=== PATIENT | female | born 1945 | race Caucasian/White ===

== ENCOUNTER 2018-10-18 19:43 | Observation (INO) ==
--- NOTE | 2018-10-18 20:26 | Emergency Department Note ---
Abdominal Pain HPI - General Chief Complaint: Abdominal Pain Stated Complaint: abdominal pain Time Seen by Provider: 10/18/18 19:57 Source: patient, family Mode of arrival: ambulatory Limitations: no limitations - History of Present Illness HPI Narrative: 73-year-old female with a history of right upper quadrant/right flank pain x6- week. Apparently she was seen 5 days ago in urgent care. At that time they did a ultrasound of the kidneys which was read as essentially normal except for a couple small nonobstructing kidney stones. CT scan was ordered which was done today. On that CT scan saw severe cholecystitis by radiologist Dr. Luna; so I called the patient back in for reevaluation-the patient had not had recent labs. At this time she is not having pain or nausea but she reports intermittent colicky pain in the right upper quadrant that wakes her up at night and worse with certain kinds of foods. - Related Data Home Medications Medication Instructions Recorded Confirmed estradiol 0.5 mg tablet 0.5 mg PO QDAY 10/04/18 10/13/18 Previous Rx's Medication Instructions Recorded cholecalciferol (vitamin D3) 2,000 2,000 unit PO QDAY #1 cap 05/21/15 unit capsule hydrALAZINE [Apresoline] 25 mg PO TID PRN #10 tab 08/25/18 Blood pressure machine #1 ea 09/11/18 losartan 100 See Rx Instructions .ROUTE 09/20/18 mg-hydrochlorothiazide 25 mg tablet .COMPLEX #90 tablet atenolol 50 mg tablet 50 mg PO BID #180 tab 09/27/18 lovastatin 20 mg tablet 20 mg PO QHS #90 tab 09/27/18 Allergies Allergy/AdvReac Type Severity Reaction Status Date / Time ORALIA Inhibitors AdvReac Cough Verified 10/13/18 13:20 estradiol [From Estraderm] AdvReac Other Verified 10/13/18 13:20 Review of Systems All systems ED: reviewed and negative except as stated. Abdominal Pain PMH - Past Medical History Attestation: Yes: The following information was validated with the patient. [facility] Narrative: Family History (Last Reviewed 10/13/18 @ 13:31 by Kimmie Augustine PA-C) Father Cerebrovascular accident (CVA), Onset Age: 49 Unknown Essential hypertension Medical History (Last Reviewed 10/13/18 @ 13:31 by Kimmie Augustine PA-C) Hypothyroidism (Chronic) Encounter for Health Maintenance Examination in Adult (Chronic) H/O: hysterectomy (Chronic) Vitamin D deficiency (Chronic) Tobacco abuse (Chronic 04/22/14) Hypertension, essential (Chronic) Hypercholesterolemia (Chronic) Hormone replacement therapy (HRT) (Chronic 04/01/11) Glucose intolerance (impaired glucose tolerance) (Chronic 04/16/13) Fibrocystic breast disease (Chronic) Personal history of colonic polyps (Chronic 12/30/10) Abnormal glucose (Chronic 04/01/11) Past Surgical History (Last Reviewed 10/13/18 @ 13:31 by Kimmie Augustine PA-C) Hx of tonsillectomy (Chronic) H/O excision of ganglion cyst (Chronic) H/O colonoscopy (Chronic 12/30/10) Medical history: Reports: hyperlipidemia, hypertension - Social History Smoking status: Current every day smoker Physical Exam No acute distress resting comfortably. Normocephalic atraumatic. Conjunctive are clear sclerae white and icteric. No nasal discharge or congestion. Oropharynx pink and moist. Neck is supple without lymphadenopathy or thyromegaly. Heart is regular rate and rhythm no murmur appreciated. Lungs clear to auscultation bilaterally without wheezes rales rhonchi or respiratory distress. Abdomen is soft mildly tender in the right upper quadrant Fulton sign positive. No peritoneal signs or guarding. No pedal edema. +2 radial pulse. Alert oriented Limitations: no limitations Course Vital Signs Temperature 98.1 F 10/18/18 19:43 Pulse Rate 88 10/18/18 19:43 Respiratory Rate 18 10/18/18 19:43 Blood Pressure 149/78 10/18/18 19:43 Pulse Oximetry (%) 97 10/18/18 19:43 Temperature 98.1 F 10/18/18 19:43 Pulse Rate 88 10/18/18 19:43 Respiratory Rate 18 10/18/18 19:43 Blood Pressure 149/78 10/18/18 19:43 Pulse Oximetry (%) 97 10/18/18 19:43 Abdominal Pain - Lab Data Lab results reviewed: Yes I reviewed the patient's lab results. Result diagrams: 10/18/18 19:58 10/18/18 19:58 Lab Results 07/17/19 07/17/19 07/17/19 Range/Units 19:58 19:58 19:58 WBC 10.2 (4.5-11.0) K/mcL RBC 5.30 H (4.00-5.20) M/mcL Hgb 16.1 H (12.0-15.0) g/dL Hct 48.6 H (36.0-48.0) % MCV 91.7 (80.0-100.0) fL MCH 30.5 (26.0-34.0) pg MCHC 33.2 (31.0-36.0) g/dL RDW 13.8 (11.5-14.5) % Plt Count 244 (140-440) K/mcL MPV 8.4 (7.4-10.4) fL Gran % 70.5 (38.0-78.0) % Lymph % (Auto) 20.5 (15.5-49.0) % Dickinson % (Auto) 7.5 (1.0-12.0) % Eos % (Auto) 1.0 (0.0-7.0) % Baso % (Auto) 0.5 (0.0-2.0) % Gran # 7.2 (1.8-8.0) K/mcL Lymph # (Auto) 2.1 (1.5-4.8) K/mcL Dickinson # (Auto) 0.8 (0.1-0.9) K/mcL Eos # (Auto) 0.1 (0.0-0.7) K/mcL Baso # (Auto) 0 (0.0-0.3) K/mcL Sodium 136 (133-145) mmol/L Potassium 3.4 (3.3-5.1) mmol/L Chloride 97 (96-108) mmol/L Carbon Dioxide 25 (22-30) mmol/L Anion Gap 14.0 (8-16) BUN 20 (8-23) mg/dl Creatinine 0.7 (0.6-1.1) mg/dl GFR Calculation 87 Glucose 150 H (70-105) mg/dL Calcium 9.6 (8.6-10.4) mg/dl Total Bilirubin 0.3 (0.0-1.0) mg/dL AST 19 (0-37) U/l ALT 24 (0-40) U/l Alkaline Phosphatase 116 (39-117) U/L C-Reactive Protein 2.9 H (0.0-0.8) mg/dl Total Protein 6.9 (5.9-8.4) gm/dL Albumin 3.8 (3.2-5.2) gm/dL Globulin 3.1 (2.2-3.7) gm/dL Albumin/Globulin Ratio 1.2 (1.0-2.3) Amylase 27 L (28-100) U/L Lipase 34 (7-60) U/L Procalcitonin < 0.10 (<0.10) ng/mL - Radiology Data Radiology results reviewed: Yes I reviewed the patient's radiology results. CT scan from today is reviewed. Dr. Luna notes moderate cholecystitis on his formal report; CBD is normal Preliminary gallbladder ultrasound results from registered vascular technologist (rvt) show adenomyomatosis with thickened gallbladder wall and fluid in the urena. Also one gallstone in the gallbladder neck. CBD is dilated to 8.5 cm Disposition Pt seen by NURSING FACULTY/PA only: No Clinical Impression: Adenomyomatosis of gallbladder Cholecystitis with cholelithiasis Qualifiers: Cholelithiasis location: gallbladder Cholecystitis acuity: acute Biliary obstruction: with biliary obstruction Qualified Code(s): K80.01 - Calculus of gallbladder with acute cholecystitis with obstruction Summary: Ordered ultrasound to further sort out. Laboratory pending. At this time she is not having pain or nausea so we did not give her those medicines. IV fluids started Laboratory look okay but gallbladder ultrasound performed today shows adenomyomatosis and cholecystitis with cholelithiasis. Dilated common bile duct is concerning. I discussed the case with Dr. Rasheed Wyatt, general surgeon who agreed to accept the patient for further care and evaluation in the hospital. I will go ahead and write transition orders for her tonight. He will plan on trying to get to her gallbladder tomorrow or perhaps Tuesday. In the meantime we will start antibiotics Disposition: Xfer As Inpt ([facility]) Condition: Fair Referrals: Edmund Hayward MD, FAAFP [Primary Care Provider] -
[2018-10-18 20:43] LABS: Basophils # (Auto) 0 K/mcL (0.0-0.3); Basophils % (Auto) 0.5 % (0.0-2.0); Eosinophils # (Auto) 0.1 K/mcL (0.0-0.7); Granulocytes % (Auto) 70.5 % (38.0-78.0); Hematocrit 48.6 % (36.0-48.0); Hemoglobin 16.1 g/dL (12.0-15.0); Lymphocytes # (Auto) 2.1 K/mcL (1.5-4.8); Lymphocytes % (Auto) 20.5 % (15.5-49.0); Mean Cell Volume 91.7 fL (80.0-100.0); Mean Corpuscular HGB Conc 33.2 g/dL (31.0-36.0); Mean Platelet Volume 8.4 fL (7.4-10.4); Monocytes # (Auto) 0.8 K/mcL (0.1-0.9); Monocytes % (Auto) 7.5 % (1.0-12.0); Platelet Count 244 K/mcL (140-440); Red Cell Distribution Width 13.8 % (11.5-14.5); WBC 10.2 K/mcL (4.5-11.0)
[2018-10-18 20:59] LABS: ALT/SGPT 24 U/l (0-40); AST/SGOT 19 U/l (0-37); Albumin 3.8 gm/dL (3.2-5.2); Albumin/Globulin Ratio 1.2 (1.0-2.3); Alkaline Phosphatase 116 U/L (39-117); Amylase 27 U/L (28-100); Bilirubin,Total 0.3 mg/dL (0.0-1.0); Blood Urea Nitrogen 20 mg/dl (8-23); C-Reactive Protein 2.9 mg/dl (0.0-0.8); Calcium 9.6 mg/dl (8.6-10.4); Carbon Dioxide 25 mmol/L (22-30); Chloride 97 mmol/L (96-108); Globulin 3.1 gm/dL (2.2-3.7); Glomerular Filtration Rate 87; Glucose 150 mg/dL (70-105)
[2018-10-18] MEDS ORDERED: ONDANSETRON 4 MG/2 ML VIAL IV PRN (21:39)
[2018-10-18] MEDS ORDERED: ACETAMINOPHEN 325 MG TABLET PO PRN (21:39)
[2018-10-18] MEDS ORDERED: NALOXONE HCL 0.4 MG/ML VIAL IV PRN (21:39)
[2018-10-18] MEDS: 0.9 % SODIUM CHLORIDE 1,000 ML IV SCH (23:14)
[2018-10-18] MEDS: PIPERACILLIN SODIUM/TAZOBACTAM 3.375 GM in DEXTROSE 5% IN WATER 50 ML IV SCH (23:48)
--- NOTE | 2018-10-19 03:58 | Ultrasound Report ---
CLINICAL INFORMATION: Right upper quadrant pain. COMPARISON: None. FINDINGS: The gallbladder is enlarged with moderate diffuse wall thickening - 5 mm. There is a 17 mm stone lodged within the gallbladder neck. Common bile duct is slightly dilated - 8 mm. The liver, pancreas and right kidney are unremarkable. 5 cm mass in the right adrenal gland is better seen on CT represents a known myelolipoma. No free fluid IMPRESSION: Cholecystitis with a 17 mm stone lodged in the gallbladder neck. Interpreted and Authenticated by: Hansel Luna 10/19/18
[2018-10-19] MEDS: PIPERACILLIN SODIUM/TAZOBACTAM 3.375 GM in DEXTROSE 5% IN WATER 50 ML IV SCH ×3 (06:05→21:19)
[2018-10-19] MEDS ORDERED: IPRATROPIUM/ALBUTEROL 3 ML AMPUL.NEB NEB PRN (07:57)
[2018-10-19] MEDS ORDERED: SCOPOLAMINE 1 PATCH PATCH TOPICAL PRN (07:57)
[2018-10-19 08:50] LABS: Prothrombin Time 13.4 sec (11.9-14.5)
[2018-10-19 09:13] LABS: Hemoglobin A1C 5.9 % HGB (4.0-6.0)
[2018-10-19] MEDS: 0.9 % SODIUM CHLORIDE 1,000 ML IV SCH ×4 (09:38→19:15)
[2018-10-19] MEDS ORDERED: LORazepam 2 MG/ML VIAL IV PRN (11:02)
[2018-10-19] MEDS ORDERED: hydrALAZINE 25 MG TABLET PO PRN (11:06)
--- NOTE | 2018-10-19 11:13 | General Surg History&Physical ---
History of Present Illness Patient information: Note initiated : 10/19/18 at 11:10 am Service Date, if different from initiated Date: [] Patient: Nazia Lundy a 73 y/o F admitted on 10/18/18 for abdominal pain. Chief Complaint: [] HPI: Ms. Lundy is a 73 year old F admitted with acute cholecystitis with cholelithiasis. The patient states that she started having right side upper abdominal pain in July 2018. She had multiple attacks and was seen in the emergency room on 2018. At that time she had abdominal pain, nausea, vomiting. She was treated symptomatically and discharged. She was seen [facility] on yesterday and some studies were ordered. She was noted to have thickening of the gallbladder. She returned to the emergency room where an ultrasound was done and this showed a stone impacted in the neck of the gallbladder with thickened gallbladder wall. Patient states that she has continued tenderness, but her nausea and vomiting has resolved. She has a 10 pound weight loss because of decreased by mouth intake. Patient seen and counseled for laparoscopic cholecystectomy which will be done tomorrow. Review of Systems All systems PM: reviewed and no additional remarkable complaints except as stated (negative except as noted in the history of present illness .she has no other complaints.) Past History Past medical history: Hypertension Past surgical history: Abdominal hysterectomy Past family history: Father age 49 due to complications of heart disease, possibly OR. Mother age 67 due to complications of asthma. Brother alive age 75 with heart disease requiring an AICD Past social history: Every day smoker for many years Denies alcohol use. Denies drug use Medications and Allergies Home Medications Medication Instructions Recorded Confirmed Type cholecalciferol (vitamin D3) 2,000 2,000 unit PO QDAY #1 cap 05/21/15 10/18/18 Rx unit capsule hydrALAZINE [Apresoline] 25 mg PO TID PRN #10 tab 08/25/18 10/18/18 Rx Blood pressure machine #1 ea 09/11/18 10/13/18 Rx atenolol 50 mg tablet 50 mg PO BID #180 tab 09/27/18 10/18/18 Rx lovastatin 20 mg tablet 20 mg PO QHS #90 tab 09/27/18 10/18/18 Rx estradiol 0.5 mg tablet 0.5 mg PO QDAY 10/04/18 10/18/18 History Losartan/Hydrochlorothiazide See Rx Instructions PO DAILY 10/18/18 10/18/18 History [Losartan-Hctz 100-25 mg Tab] Allergies Allergy/AdvReac Type Severity Reaction Status Date / Time ORALIA Inhibitors AdvReac Intermediate Cough Verified 10/18/18 23:17 estradiol [From Estraderm] AdvReac Intermediate Rash Verified 10/18/18 23:17 Exam Temp Pulse Resp BP Pulse Ox 98.8 F 68 16 133/72 94 10/19/18 08:00 10/19/18 04:24 10/19/18 08:00 10/19/18 08:00 10/19/18 08:00 - General physical appearance well developed, well nourished, no distress - Eyes PERRL, normal ocular movement. negative: icteric - ENT normal pinna, normal nares, normal mucosa, no hearing loss, no congestion, other (fair dentition) - Head Head exam IM: Present: atraumatic, normal inspection, normocephalic - Neck no masses, no bruits, trachea midline, no lymphadenopathy, no venous distension - Cardiovascular Cardiovascular exam IM: Present: normal rate and rhythm, RRR, +S1, +S2. Absent: JVD, tachycardia - Respiratory normal expansion, normal respiratory effort, clear to auscultation - Abdomen Abdomen: Present: soft, non tender, bowel sounds, guarding. Absent: tender (. Tenderness in right upper quadrant and subcostal region and in the epigastrium with guarding) Hernia: Present: none - Genitourinary Present: normal external genitalia - Integumentary Present: no rash, no growths, no abnormal pigmentation - Neurologic Present: normal coordination, normal sensation - Musculoskeletal Present: normal gait, normal posture - Psychiatric Present: oriented to time, oriented to person, oriented to place, speech is normal, memory intact Assessment and Plan (1) Cholecystitis with cholelithiasis Continue antibiotics. Clear liquid diet. Schedule for laparoscopic cholecystectomy tomorrow. Check labs in the morning Status: Acute Qualifiers: Cholelithiasis location: gallbladder Cholecystitis acuity: acute Biliary obstruction: without biliary obstruction Qualified Code(s): K80.00 - Calculus of gallbladder with acute cholecystitis without obstruction (2) Hypertension, essential Continue home medication regimen while taking by mouth Status: Chronic Comment: Past evaluation at [facility] --bilateral adrenal masses--probable adenoma. Norvasc, Atenolol, MEGAN
[2018-10-19] MEDS ORDERED: ACETAMINOPHEN 1,000 MG/100 ML BOTTLE IV ONE ×3 (12:23→23:31)
[2018-10-19] MEDS: ACETAMINOPHEN 1,000 MG in PREMIX 1 BAG IV SCH ×3 (12:57→23:41)
[2018-10-19] MEDS: ATENOLOL 50 MG TABLET PO SCH (20:47)
[2018-10-20] MEDS: 0.9 % SODIUM CHLORIDE 1,000 ML IV SCH ×5 (03:53→18:01)
[2018-10-20] MEDS ORDERED: ACETAMINOPHEN 1,000 MG/100 ML BOTTLE IV ONE ×2 (05:17→11:44)
[2018-10-20] MEDS: PIPERACILLIN SODIUM/TAZOBACTAM 3.375 GM in DEXTROSE 5% IN WATER 50 ML IV SCH ×3 (05:21→21:49)
[2018-10-20] MEDS: ACETAMINOPHEN 1,000 MG in PREMIX 1 BAG IV SCH (05:23)
[2018-10-20 05:33] LABS: Basophils # (Auto) 0 K/mcL (0.0-0.3); Basophils % (Auto) 0.3 % (0.0-2.0); Eosinophils # (Auto) 0.1 K/mcL (0.0-0.7); Eosinophils % (Auto) 2.3 % (0.0-7.0); Hematocrit 40.7 % (36.0-48.0); Hemoglobin 13.6 g/dL (12.0-15.0); Lymphocytes # (Auto) 1.6 K/mcL (1.5-4.8); Lymphocytes % (Auto) 25.5 % (15.5-49.0); Mean Cell Volume 91.8 fL (80.0-100.0); Mean Corpuscular HGB Conc 33.3 g/dL (31.0-36.0); Mean Platelet Volume 8.4 fL (7.4-10.4); Monocytes # (Auto) 0.5 K/mcL (0.1-0.9); Monocytes % (Auto) 7.9 % (1.0-12.0); Platelet Count 194 K/mcL (140-440); RBC 4.43 M/mcL (4.00-5.20); Red Cell Distribution Width 13.2 % (11.5-14.5); WBC 6.3 K/mcL (4.5-11.0)
[2018-10-20 05:43] LABS: ALT/SGPT 29 U/l (0-40); AST/SGOT 22 U/l (0-37); Albumin/Globulin Ratio 1.2 (1.0-2.3); Alkaline Phosphatase 99 U/L (39-117); Bilirubin,Direct 0.2 mg/dL (0.0-0.3); Bilirubin,Total 0.8 mg/dL (0.0-1.0); Blood Urea Nitrogen 8 mg/dl (8-23); Calcium 8.2 mg/dl (8.6-10.4); Carbon Dioxide 26 mmol/L (22-30); Chloride 106 mmol/L (96-108); Globulin 2.6 gm/dL (2.2-3.7); Glomerular Filtration Rate 92; Glucose 74 mg/dL (70-105); Lactate Dehydrogenase 135 U/L (94-250); Phosphorous 2.6 mg/dL (2.7-4.5); Triglycerides 108 mg/dl (<150); Uric Acid 3.2 mg/dL (2.5-8.0)
[2018-10-20] MEDS: ATENOLOL 50 MG TABLET PO SCH ×2 (08:13→20:18)
[2018-10-20] MEDS ORDERED: ESTRADIOL 1 MG TABLET PO SCH (09:00)
[2018-10-20] MEDS ORDERED: HYDROCHLOROTHIAZIDE 25 MG TABLET PO SCH (09:00)
[2018-10-20] MEDS ORDERED: LOSARTAN 50 MG TABLET PO SCH (09:00)
[2018-10-20] MEDS ORDERED: LOSARTAN/HCTZ 100/25 TABLET PO SCH (09:00)
[2018-10-20] MEDS ORDERED: MIDAZOLAM 2 MG/2 ML VIAL IV ONE (11:20)
[2018-10-20] MEDS ORDERED: fentaNYL 250 MCG/5 ML VIAL IV ONE (11:20)
[2018-10-20] MEDS ORDERED: DEXAMETHASONE 10 MG/ML VIAL IV ONE (11:20)
[2018-10-20] MEDS ORDERED: ONDANSETRON 4 MG/2 ML VIAL IV ONE (11:20)
[2018-10-20] MEDS ORDERED: PROPOFOL 200 MG/20 ML VIAL IV ONE (11:20)
[2018-10-20] MEDS ORDERED: GLYCOPYRROLATE 0.2 MG/ML VIAL IV ONE (11:20)
[2018-10-20] MEDS ORDERED: SUGAMMADEX SODIUM 200 MG/2 ML VIAL IV ONE (11:20)
[2018-10-20] MEDS ORDERED: LIDOCAINE HCL/PF 100 MG/5 ML SYRINGE IV ONE (11:20)
[2018-10-20] MEDS ORDERED: KETAMINE 100 MG/ML ML IV ONE (11:20)
[2018-10-20] MEDS ORDERED: PHENYLEPHRINE 10 MG/ML VIAL IV ONE (11:20)
[2018-10-20] MEDS ORDERED: IPRATROPIUM/ALBUTEROL 3 ML AMPUL.NEB NEB PRN (11:44)
[2018-10-20] MEDS ORDERED: ONDANSETRON 4 MG/2 ML VIAL IV PRN ×2 (11:44→13:49)
[2018-10-20] MEDS ORDERED: BENZOCAINE/MENTHOL 1 LOZENGE PO PRN (11:44)
[2018-10-20] MEDS ORDERED: fentaNYL 100 MCG/2 ML VIAL IV PRN (11:44)
[2018-10-20] MEDS ORDERED: LACTATED RINGERS 250 ML IV PRN (11:44)
[2018-10-20] MEDS ORDERED: FLUMAZENIL 0.1 MG/ML ML IV PRN (11:44)
[2018-10-20] MEDS ORDERED: NALOXONE HCL 0.4 MG/ML VIAL IV PRN ×2 (11:44→13:49)
[2018-10-20] MEDS ORDERED: METHOCARBAMOL 1,000 MG/10 ML VIAL IV PRN (11:44)
[2018-10-20] MEDS ORDERED: LACTATED RINGERS 1,000 ML IV SCH (11:45)
--- NOTE | 2018-10-20 12:50 | Brief Operative Note ---
Date of procedure: 10/20/18 Pre-op diagnosis: acute cholecystitis with cholelithiasis Post-op diagnosis: other (acute empyema of gallbladder with cholelithiasis) Procedure: laparoscopic cholecystectomy Grafts/Implants: No (zeeshan drain x1 #10) Anesthesia: GETA Findings: severe inflammation of gallbladder with gross pus of lumen Complications: none Surgeon: David Wyatt Estimated blood loss (cc): 30 Specimens Removed/Pathology: other (gallbladder) Condition: stable Disposition: PACU
[2018-10-20] MEDS ORDERED: KETOROLAC 15 MG/ML VIAL IV ONE (12:54)
[2018-10-20] MEDS ORDERED: LORazepam 2 MG/ML VIAL IV PRN (13:49)
[2018-10-20] MEDS ORDERED: hydrALAZINE 25 MG TABLET PO PRN (13:49)
[2018-10-20] MEDS: oxyCODONE/APAP 10/325MG TABLET PO PRN (21:49)
[2018-10-21] MEDS: 0.9 % SODIUM CHLORIDE 1,000 ML IV SCH ×2 (02:37→06:04)
[2018-10-21] MEDS: oxyCODONE/APAP 10/325MG TABLET PO PRN (04:12)
[2018-10-21 05:39] LABS: Basophils # (Auto) 0 K/mcL (0.0-0.3); Basophils % (Auto) 0.2 % (0.0-2.0); Eosinophils # (Auto) 0 K/mcL (0.0-0.7); Eosinophils % (Auto) 0 % (0.0-7.0); Granulocytes % (Auto) 84.4 % (38.0-78.0); Hematocrit 40.2 % (36.0-48.0); Hemoglobin 13.4 g/dL (12.0-15.0); Lymphocytes % (Auto) 8.8 % (15.5-49.0); Mean Cell Volume 92.9 fL (80.0-100.0); Mean Corpuscular HGB Conc 33.2 g/dL (31.0-36.0); Mean Platelet Volume 8.7 fL (7.4-10.4); Monocytes # (Auto) 0.7 K/mcL (0.1-0.9); Monocytes % (Auto) 6.6 % (1.0-12.0); Platelet Count 230 K/mcL (140-440); RBC 4.33 M/mcL (4.00-5.20); Red Cell Distribution Width 13.3 % (11.5-14.5); WBC 10.8 K/mcL (4.5-11.0)
[2018-10-21 05:58] LABS: ALT/SGPT 55 U/l (0-40); AST/SGOT 44 U/l (0-37); Albumin 3.2 gm/dL (3.2-5.2); Albumin/Globulin Ratio 1.2 (1.0-2.3); Alkaline Phosphatase 104 U/L (39-117); Bilirubin,Direct < 0.2 mg/dL (0.0-0.3); Bilirubin,Total 0.3 mg/dL (0.0-1.0); Blood Urea Nitrogen 10 mg/dl (8-23); Calcium 8.6 mg/dl (8.6-10.4); Carbon Dioxide 25 mmol/L (22-30); Chloride 104 mmol/L (96-108); Globulin 2.6 gm/dL (2.2-3.7); Glomerular Filtration Rate 87; Glucose 131 mg/dL (70-105); Lactate Dehydrogenase 146 U/L (94-250); Phosphorous 2.9 mg/dL (2.7-4.5); Triglycerides 115 mg/dl (<150); Uric Acid 2.1 mg/dL (2.5-8.0)
[2018-10-21] MEDS: PIPERACILLIN SODIUM/TAZOBACTAM 3.375 GM in DEXTROSE 5% IN WATER 50 ML IV SCH (06:03)
[2018-10-21] MEDS: ATENOLOL 50 MG TABLET PO SCH (08:50)
[2018-10-21] MEDS ORDERED: LOSARTAN 50 MG TABLET PO SCH (09:00)
[2018-10-21] MEDS ORDERED: ESTRADIOL 1 MG TABLET PO SCH (09:00)
[2018-10-21] MEDS ORDERED: HYDROCHLOROTHIAZIDE 25 MG TABLET PO SCH (09:00)
--- NOTE | 2018-10-21 11:58 | Discharge Summary ---
Providers - Providers Patient information: Note initiated : 10/21/18 at 11:58 am Service Date, if different from initiated Date: [] Patient: Nazia Lundy 73 y/o F admitted on 10/18/18 for abdominal pain. Chief Complaint: [] Date of admission: 10/18/18 Discharge date: 10/21/18 Attending physician: David Wyatt Hospitalization Hospital course: 73-year-old female with history of acute abdominal pain with nausea and vomiting dating back to July 2018. She was seen in the outpatient clinic and emergency room and treated symptomatically. Her symptoms persisted and she Mata returned to the [facility]. Studies were ordered which suggested acute cholecystitis. She returned to the emergency room and ultrasound confirmed acute cholecystitis with cholelithiasis. Patient was admitted and underwent laparoscopic cholecystectomy on October 20. She was found to have acute empyema of the gallbladder with cystic duct obstruction and severe pericholecystic inflammation. She had an uneventful cholecystectomy. She feels much better. White blood count is 10.8 and hemoglobin is 13.4. She has mild elevation in her transaminases, but her alkaline phosphatase is normal and her bilirubin is normal. She has serosanguineous drainage through her URSTY drain. She is afebrile. Discharge diagnosis: acute cholecystitis with empyema of The gallbladder Secondary discharge diagnosis: Cholelithiasis with cystic duct obstruction Reason for admission: recurrent abdominal pain with nausea and vomiting Procedures: Laparoscopic cholecystectomy Pertinent studies/significant findings: Upper abdominal ultrasound Complications: None Exam Temp Pulse Resp BP Pulse Ox 98.2 F 77 16 152/76 93 10/21/18 07:28 10/21/18 04:00 10/21/18 07:28 10/21/18 07:28 10/21/18 07:28 - General physical appearance well developed, well nourished, no distress - Eyes PERRL, normal ocular movement - ENT normal pinna, normal nares, normal mucosa, no hearing loss, no congestion - Head Head exam IM: Present: atraumatic, normocephalic - Neck no masses, no bruits, trachea midline, no lymphadenopathy, no venous distension - Cardiovascular Cardiovascular exam IM: Present: normal rate and rhythm - Respiratory normal expansion, normal respiratory effort, clear to percussion, clear to auscultation - Abdomen Abdomen: Present: soft, tender (mild tenderness around port sites, otherwise benign. Abdomen; good active bowel sounds; RUSTY drain with serosanguineous drainage), bowel sounds Hernia: Present: none - Integumentary Present: no rash, no growths, no abnormal pigmentation - Neurologic Present: normal coordination, normal sensation - Musculoskeletal Present: normal gait, normal posture - Psychiatric Present: oriented to time, oriented to person, oriented to place, speech is normal, memory intact Discharge Plan - Patient/Caregiver Discharge Instructions Activity: increase activity as tolerated Diet: Low Fat Additional Instructions: Empty RUSTY drain once or twice daily as needed and recharge Follow-up in the office in 2 weeks. Ciprofloxacin 500 mg twice daily 5 days Prescriptions: Ciprofloxacin [Cipro] 500 mg PO BID #10 tab - Follow up Plan Follow up with: Edmund Hayward MD, FAAFP [Primary Care Provider] - Disposition: Home, Self-Care Prognosis: Good Rehab Potential: Good I certify that the patient requires SNF services.: No Overall status at discharge: patient is progressing back to baseline Pending Studies Resuscitation Status Full Code Diet Full Liquid Diet Start TueOct 20 1350 Atenolol (Tenormin) 50 mg PO BID [facility] Last Admin: 10/21/18 08:50 Dose: 50 mg Documented by: Admin: 10/20/18 20:18 Dose: 50 mg Documented by: JLUIS Estradiol (Estrace) 0.5 mg PO QDAY [facility] Last Admin: 10/21/18 08:51 Dose: 0.5 mg Documented by: LOGAN Hydrochlorothiazide (Oretic) 25 mg PO DAILY [facility] Last Admin: 10/21/18 08:51 Dose: 25 mg Documented by: LOGAN Sodium Chloride (Sodium Chloride 0.9%) 1,000 mls @ 125 mls/hr IV .Q8H [facility] Last Admin: 10/21/18 06:04 Dose: Not Given Documented by: Admin: 10/21/18 02:37 Dose: 125 mls/hr Documented by: Infusion: 10/21/18 02:01 Dose: 125 mls/hr Documented by: Admin: 10/20/18 18:01 Dose: 125 mls/hr Documented by: Admin: 10/20/18 14:54 Dose: Not Given Documented by: DIANA Piperacillin Sod/Tazobactam (Sod 3.375 gm/ Dextrose) 50 mls @ 100 mls/hr IV Q8H [facility]; Protocol Last Infusion: 10/21/18 06:52 Dose: 0 mls/hr Documented by: Admin: 10/21/18 06:03 Dose: 100 mls/hr Documented by: Infusion: 10/20/18 22:30 Dose: 0 mls/hr Documented by: Admin: 10/20/18 21:49 Dose: 100 mls/hr Documented by: Infusion: 10/20/18 14:32 Dose: 100 mls/hr Documented by: Admin: 10/20/18 14:02 Dose: 100 mls/hr Documented by: GM4 Lorazepam (Ativan) 1 mg IV Q6HP PRN PRN Reason: ANXIETY/SEDATION Last Admin: 10/21/18 01:17 Dose: 1 mg Documented by: JLUIS Losartan Potassium (Cozaar) 100 mg PO DAILY [facility] Last Admin: 10/21/18 08:51 Dose: 100 mg Documented by: LOGAN Oxycodone/Acetaminophen (Percocet 10-325mg) 1 tab PO Q4HP PRN PRN Reason: Pain Last Admin: 10/21/18 04:12 Dose: 1 tab Documented by: Admin: 10/20/18 21:49 Dose: 1 tab Documented by: JLUIS Shift Summary 10/21/18 04:47 Shift Summary by Iliana Shi Patient alert and oriented x4. Medicated with Percocet 1 tab x2 for pain 5-7/10 with good effect. Also given ativan for sleep. Up with SBA. Voids adequately. IVF NS@ 125 mls infusing well on right wrist. IV on RFA kept saline locked. RUSTY on RLQ, drained 35msl of sanguinous output this shift. 3 lap sites, misti and tegaderm intact with scant drainage. Tolerating full liquid diet. Ambulated in hallway last night 350 ft. On RA. VSS. Initialized on 10/21/18 04:47 - END OF NOTE
--- NOTE | 2018-10-23 16:20 | Surgical Pathology Report ---
HISTOLOGY SPECIMEN MICROSCOPIC DIAGNOSIS GALLBLADDER, CHOLECYSTECTOMY: -- CHRONIC CHOLECYSTITIS WITH CHOLELITHIASIS. -- ONE BENIGN LYMPH NODE. (RLF:ileana) PROCEDURAL IMPRESSION Cholecystitis; cholelithiasis. GROSS DESCRIPTION Received in formalin labeled gallbladder, is an 8.5 x 3.3 x 2.3 cm pink to purple-kong gallbladder. The serosal surface is smooth and glistening. There are multiple metal clips present and the cystic duct is stapled closed. Adjacent to the duct there is a 1 cm in diameter firm pink-kong nodule. The lumen contains viscous dark red fluid and two yellow-green stones that measure 0.7 and 2.2 cm in greatest dimension. The mucosa is dark red and velvety. The wall is up to 1 cm thick. Advanced Registered Nurse sections submitted in two cassettes. (STS:sln) Electronically Signed by: Pau Medrano M.D.
--- NOTE | 2018-10-24 08:40 | Operative Note ---
DATE OF OPERATION: 10/20/2018 PREOPERATIVE DIAGNOSES: Acute cholecystitis with cholelithiasis. POSTOPERATIVE DIAGNOSES: Acute empyema of the gallbladder with cholelithiasis. PROCEDURE: Laparoscopic cholecystectomy. SURGEON: David Wyatt M.D. DESCRIPTION OF PROCEDURE: Under general anesthesia, the patient's abdomen was prepped and draped in a sterile field. Timeout procedure was carried out as per protocol. Supraumbilical incision was made and Veress needle was inserted. Abdomen was insufflated with 2.5 liters of CO2. A 12 mm port was placed. Laparoscope was placed. A severely inflamed, dilated gallbladder covered with dense inflammatory adhesions was noted. The adhesions were from the wall of the gallbladder down to the infundibulum. The gallbladder was very tense and was decompressed with a Weck needle. It contained gross, creamy white pus. Most of this was suctioned. The gallbladder could then be grasped. The infundibulum was further dissected. The cystic duct was dissected. It appeared to be dilated all the way back to its junction with the gallbladder. It was followed from the gallbladder down to the common duct. The common duct was dissected to make sure that it traversed proximally and distally. The cystic duct was gently maneuvered with the [place] forceps to make sure they were embedded and not contain the stone at its junction with the common bile duct. No stone could be identified. The cystic duct was then divided at its junction with the gallbladder using the Endo JA stapler. Cystic artery branch was further dissected, clipped with four clips and divided. The gallbladder was from the infrahepatic bed using electrocautery. The gallbladder was placed in an Endopouch and retrieved. Dominick drain was placed and positioned in the subhepatic space. It was brought out through the most lateral port site. CO2 was allowed to escape from the abdomen and the ports were removed. Fascia at the umbilicus was closed with 0 Vicryl. Skin incisions were closed with misti. Drain was secured with 2-0 nylon. Tegaderm dressings were placed. The patient tolerated the procedure well. She was awakened, transferred to a bed, and taken to the postanesthetic care unit in satisfactory condition. LCS:trip Job ID: [id number] Doc ID: [id number] David Wyatt M.D.
== END 2018-10-21 13:40 | disposition home or self-care (01) ==
LOC: ED 19:43 → INTOOBSV 22:35 → MEDSUR 22:35
PROVIDERS: ADMIT Family Medicine Adult Medicine; ATTEND Family Medicine Adult Medicine